=== PATIENT | male | born 1985 | race Two or more races ===

== ENCOUNTER 2021-03-04 04:07 | Emergency (ER) | payer OTHER, SELFPAY ==
--- NOTE | ~2021-03-04 | XR_ITS ---
EXAMINATION: CHEST 1 VIEW CLINICAL INFORMATION: Cough. COMPARISON: None. TECHNIQUE: An AP view of the chest is provided. FINDINGS: The cardiac silhouette is not enlarged. The mediastinal and hilar contours are unremarkable. There are neither pleural effusions nor pneumothoraces. There are no consolidations. The osseous structures are unremarkable. XR/XR chest 1V IMPRESSION: No evidence for acute disease.
[2021-03-04 04:40] VITALS: BP 136/79; PULSE 80; RESP 18; TEMP 36.8; O2SAT 97; BMI 20.2
--- NOTE | 2021-03-04 04:55 | ED.URI ---
HPI - URI/Sore Throat General Chief Complaint: Upper Respiratory Symptoms Stated Complaint: ASTHMA/SOB Time Seen by Provider: 03/04/21 04:51 Source: patient Mode of arrival: ambulatory Limitations: no limitations History of Present Illness HPI Narrative: Patient comes emergency room complaining of wheezing, mild shortness of breath. Patient states he has been having an asthma exacerbation for the last 5 days. Patient states he had asthma as a child, outgrew it, 5 days ago it restarted again. Patient has been using albuterol pump and nebulization treatments from his girlfriend. Patient has been complaining of a cough as well. Patient states his shortness of breath and wheezing are worse at night. Patient denies fever, no chills, no chest pain. Related Data Previous Rx's Medication Instructions Recorded albuterol sulfate 2 puff INHALATION 6XD PRN #8.5 g 03/04/21 albuterol sulfate 5 mg INHALATION Q6H PRN #30 ea 03/04/21 benzonatate [Tessalon Perles] 100 mg PO BID PRN #10 cap 03/04/21 prednisone 50 mg PO DAILY #4 tab 03/04/21 Allergies Allergy/AdvReac Type Severity Reaction Status Date / Time No Known Allergies Allergy Verified 03/04/21 04:39 [No Known Allergies*] Review of Systems Review of Systems: Constitutional : No Weight loss, No Fever, No Chills, No Night Sweats, No Fatigue, No Malaise ENT/Mouth : No Hearing loss, No Ear Pain, No Nasal Congestion, No Sinus Pain, No Hoarseness, No sore throat, No Rhinorrhea, No Swallowing Difficulty Eyes: No Eye Pain, No Swelling, No Redness, No Foreign Body, No Discharge, No Vision Changes Cardiovascular : No Chest Pain, No SOB, No Dyspnea on Exertion, No Orthopnea, No Edema, No Palpitations Respiratory : Complaining of Cough, No Sputum, complaining of Wheezing, No Smoke Exposure, complaining of mild dyspnea Gastrointestinal : No Nausea, No Vomiting, No Diarrhea, No Constipation, No abdominal Pain, No Hematochezia, No Melena Genitourinary : no irregular bleeding, No Dysuria, No Urinary Frequency, No Hematuria, No Urinary Incontinence, No Urgency, No Flank Pain, No Urinary Flow Changes, No Hesitancy Musculoskeletal : No joint pain, No Myalgias, No Joint Swelling Skin : No Skin Lesions, No rash Neuro : No Weakness, No Numbness, No Paresthesias, No Loss of Consciousness, No Dizziness, No Headache Psych : No Anxiety/Panic, No Depression, No SI/HI/AH/VH, No Social Issues, Heme/Lymph: No Bruising, No Bleeding,No Lymphadenopathy Endocrine : No Polyuria, No Polydipsia, No Temperature Intolerance [facility] Past Medical History Medical History Asthma COVID-19 Social History Social History Alcohol intake: never Smoking Status: Current every day smoker Use of substances other than those prescribed or required for medical reasons: No Advance Directives: No Advance Directives Information Provided: No Physical Exam Vital Signs: Vital Signs: Last Vital Signs Temp 98.3 F 03/04/21 04:40 Pulse 105 H 03/04/21 07:09 Resp 16 03/04/21 07:09 BP 141/89 H 03/04/21 07:09 Pulse Ox 100 03/04/21 07:09 Body Mass Index 20.2 Appearance: Alert. Oriented X3. No acute distress. Eyes: Pupils equal, round and reactive to light. ENT: Pharynx normal. Neck: Normal inspection. Neck supple. No lymph nodes noted. No crepitus CVS: Normal heart rate and rhythm. Pulses normal. Normal S1 and S2 Respiratory: No respiratory distress. Oxygen saturation 97% on room air, mild to moderate wheezing diffusely, speaking in full sentences Abdomen: Soft and nontender. No rigidity. No distention. good BS x4 Skin: Skin warm and dry. Normal skin color. Normal skin turgor. Extremities: No lower extremity edema. No lower extremity edema. No Lacerations. No Rash Neuro: Oriented X 3. No motor deficit. No sensory deficit. Moving all extermities. No slurred speech. Course Course Course Narrative: Patient received an hour long treatment, patient continues wheezing, oxygen saturation 97% on room air, COVID-19 result pending. Patient is going to receive a 2nd treatment of albuterol. After a 2nd treatment, patient's oxygen saturation 99% on room air, however he still wheezing significantly. I discussed admission with the patient, patient declined. Patient will be leaving against medical advice. Patient states that he will follow up with his primary care physician. patient understands the risks of leaving against medical advice including . COVID test negative. patient states that he does not have a nebulization machine, however he has been using his girlfriend's. This is not an ideal situation, however I will provide him with Albuterol nebulizationtreatments for home. MDM - URI/Sore Throat Lab Data Labs: Lab Results 03/04/21 Range/Units 06:06 Coronavirus (PCR) NEGATIVE (Negative) Influenza Type A (PCR) NEGATIVE (Negative) Influenza Type B (PCR) NEGATIVE (Negative) RSV RNA Qual (PCR) NEGATIVE (Negative) Imaging Data Chest x-ray: Radiologist's impression: The cardiac silhouette is not enlarged. The mediastinal and hilar contours are unremarkable. There are neither pleural effusions nor pneumothoraces. There are no consolidations. The osseous structures are unremarkable. XR/XR chest 1V IMPRESSION: No evidence for acute disease. Discharge Plan Discharge Clinical Impression: Asthma exacerbation Qualifiers: Asthma severity: unspecified severity Asthma persistence: unspecified Qualified Code(s): J45.901 - Unspecified asthma with (acute) exacerbation Patient Disposition: Left Against Medical Advice Instructions: Asthma (ED) Additional Instructions: You are leaving against medical advice. Please follow-up with your primary care physician tomorrow. If you have any worsening or new symptoms, please return to the emergency room or call 911 Prescriptions: New albuterol sulfate 90 mcg/actuation HFA aerosol inhaler 2 puff inhalation 6XD PRN (Reason: shortness of breath or wheezing) Qty: 8.5 RF: 0 albuterol sulfate 2.5 mg/0.5 mL solution for nebulization 5 mg inhalation Q6H PRN (Reason: shortness of breath or wheezing) Qty: 30 RF: 0 prednisone 50 mg tablet 50 mg PO DAILY Qty: 4 RF: 0 benzonatate [Tessalon Perles] 100 mg capsule 100 mg PO BID PRN (Reason: cough) Qty: 10 RF: 0
[2021-03-04] MEDS: Albuterol Sulfate (0.083%) 2.5 MG/3 ML VIAL.NEB 10 MG INHALE ×2 (05:27→06:37)
[2021-03-04 05:28] VITALS: PULSE 62; O2SAT 99
[2021-03-04] MEDS: methylPREDNISolone Sod Succ 125 MG/2 ML VIAL IVPUSH (06:09)
[2021-03-04 06:39] VITALS: PULSE 90; O2SAT 99
[2021-03-04 06:59] LABS: Influenza A PCR NEGATIVE (Negative); Influenza B PCR NEGATIVE (Negative); Resp Syncy Virus RNA Qual PCR NEGATIVE (Negative); SARS COV2 PCR INHOUSE NEGATIVE (Negative)
[2021-03-04] MEDS: Magnesium Sulfate/H2O 2 GM/50 ML PIGGYBACK IV (07:04)
[2021-03-04 07:09] VITALS: BP 141/89; PULSE 105; RESP 16; O2SAT 100
== END 2021-03-04 08:35 | disposition left against medical advice (07) ==
PROVIDERS: Emergency Provider Emergency Medicine
DX: J45.901 Unspecified asthma with (acute) exacerbation (principal); Z86.16 Personal history of COVID-19; F17.200 Nicotine dependence, unspecified, uncomplicated
CPT/HCPCS: 0241U; 36415; 71045; 94640; 94644; 94645; 96365; 96366; 96375; 99284; 99285; J2930; J3475